=== PATIENT | female | born 1960 | race Caucasian/White ===

== ENCOUNTER 2017-11-20 14:52 | Emergency (ER) | payer OTHER ==
[~2017-11-20] VITALS: Ht 162.6 cm; Wt 63.5 kg
[~2017-11-20 14:52] MED LIST: CIPROFLOXACIN500 M2 PO; PANTOPRAZOLE SO40 M1 PO
--- NOTE | 2017-11-20 15:10 | ED GI/GU/ABDOMINAL COMPLAINT ---
History of Present Illness General Chief Complaint: Abdominal Pain/Flank Pain Stated Complaint: SIB WALK IN FOR ABD PAIN Source: patient, old records Exam Limitations: no limitations Vital Signs & Intake/Output Vital Signs & Intake/Output Vital Signs Date Time Temp Pulse Resp B/P B/P Pulse O2 O2 Flow FiO2 Mean Ox Delivery Rate 11/20 1457 98.3 84 18 144/81 98 Room Air Allergies Coded Allergies: No Known Allergies (05/28/16) Reconcile Medications Alprazolam 0.5 MG TABLET 1 TAB PO PRN ANXIETY/SLEEP (Reported) Escitalopram Oxalate 10 MG TABLET 0.5 TAB PO DAILY MENTAL HEALTH (Reported) Hyoscyamine (Levsin) 0.125 MG TABLET 1 TAB PO Q4 PRN ABDOMINAL PAIN Olopatadine HCl (Patanase) 0.6 % SPRAY.PUMP 2 SPRAY NASB PRN ALLERGIES ( Reported) Olopatadine HCl (Pataday) 0.2 % DROPS 1 GTT OU QPM ALLERGIES (Reported) Triage Note: 57 YO FEMALE TO TRIAGE C/O LLQ PAIN THAT RADAITES TO THE RLQ SINCE 1AM SATRU MORNING. STATES SHE WENT TO THE WALK IN TODAY BUT THEY ADVISED HER TO COME IN FOR EVAL. +DIARRHEA. DENIES N/V. Triage Nurses Notes Reviewed? yes ? N Is pt currently ? No HPI: Patient was awoken at 1:00 in the morning on Tuesday with a sharp stabbing pain in her right and left lower quadrants. Patient had 2 episodes of diarrhea yesterday morning but hasn't had none since. She had normal bowel with this morning. Similar symptoms in the past when she had diverticulitis however she states at that point the pain was only on the left side. Patient denies any nausea or vomiting. There are no fevers or chills. There is no constipation or diarrhea. There is no dysuria. She has not noticed any hematuria. She went to a walk-in center and they noticed that she was very tender in the right lower quadrant she was sent in for evaluation of a CAT scan to rule out appendicitis. Patient states the pain is constant and getting worse when she laughs or moves around or the bumps in the car. The pain is in both the right and left lower quadrant. At its worst the pain is 10 out of 10 and is currently a 6 out of 10. Patient does not want anything for pain at this time. Past History Travel History Traveled to [place] past 21 day No Medical History Any Pertinent Medical History? see below for history Gastrointestinal: diverticulitis, GERD Psychiatric: depression CHIP MIXER/Reproductive: ovarian cysts Surgical History Surgical History: non-contributory Psychosocial History What is your primary language Sinhala Tobacco Use: Never used ETOH Use: occasional use Illicit Drug Use: denies illicit drug use Family History Hx Contributory? No Review of Systems Review of Systems Constitutional: Reports: no symptoms. EENTM: Reports: no symptoms. Respiratory: Reports: no symptoms. Cardiovascular: Reports: no symptoms. GI: Reports: see HPI, abdominal pain. Genitourinary: Reports: no symptoms. Musculoskeletal: Reports: no symptoms. Skin: Reports: no symptoms. Neurological/Psychological: Reports: no symptoms. Hematologic/Endocrine: Reports: no symptoms. Immunologic/Allergic: Reports: no symptoms. All Other Systems: Reviewed and Negative Physical Exam Physical Exam General Appearance: well developed/nourished, alert, awake, anxious, moderate distress Head: atraumatic, normal appearance Eyes: Bilateral: PERRL, EOMI. Ears, Nose, Throat, Mouth: hearing grossly normal Neck: normal inspection, supple, full range of motion Respiratory: normal breath sounds, chest non-tender, no respiratory distress, lungs clear Cardiovascular: regular rate/rhythm, normal peripheral pulses Gastrointestinal: normal bowel sounds, soft, TENDER IN RUQ, RLQ AND LLQ, REBOUND IN RLQ, NO ROVSING'S SIGN Back: normal inspection, normal range of motion, NO CVA TENDERNESS Extremities: normal range of motion Neurologic/Psych: no motor/sensory deficits, awake, alert, oriented x 3, normal gait, normal mood/affect Skin: intact, normal color, warm/dry Core Measures ACS in differential dx? No Sepsis Present: No Sepsis Focused Exam Completed? No Progress Differential Diagnosis: appendicitis, diverticulitis, ischemic bowel, inflamm bowel dis, pancreatitis Plan of Care: Orders Procedure Date/time Status Add-on Test (ER Only) 11/20 1513 Active URINALYSIS 11/20 1509 Complete LIPASE 11/20 1458 Complete COMPREHENSIVE METABOLIC PANEL 11/20 1458 Complete CBC WITHOUT DIFFERENTIAL 11/20 1458 Complete AMYLASE 11/20 1458 Complete Laboratory Tests 11/20/17 1535: Urine Color YEL, Urine Clarity CLEAR, Urine pH 5.5, Ur Specific [place] 1.025, Urine Protein NEG, Urine Ketones NEG, Urine Nitrite NEG, Urine Bilirubin NEG, Urine Urobilinogen 0.2, Ur Leukocyte Esterase NEG, Ur Microscopic SEDIMENT EXAMINED, Urine RBC FEW H, Urine WBC RARE, Ur Epithelial Cells RARE, Urine Mucus MANY H, Urine Hemoglobin TRACE-LYSED, Urine Glucose NEG 11/20/17 1503: CBC w Diff NO MAN DIFF REQ, RBC 4.43, MCV 91.7, MCH 31.6 H, MCHC 34.5, RDW 12.4 , MPV 7.1 L, Gran % 55.2, Lymphocytes % 33.6, Monocytes % 8.2, Eosinophils % 2.5, Basophils % 0.5, Absolute Granulocytes 3.8, Absolute Lymphocytes 2.3, Absolute Monocytes 0.6, Absolute Eosinophils 0.2, Absolute Basophils 0 11/20/17 1458: Anion Gap 11, Estimated GFR > 60, BUN/Creatinine Ratio 12.9, Glucose 114 H, Calcium 10.1, Total Bilirubin 0.5, AST 22, ALT 19, Alkaline Phosphatase 92, Total Protein 6.9, Albumin 4.4, Globulin 2.5, Albumin/Globulin Ratio 1.8, Amylase 68, Lipase 97 Diagnostic Imaging: Viewed by Me: CT Scan. Discussed w/RAD: CT Scan. Radiology Impression: PATIENT: JULES STAHL PRESENT AGE: 57 PATIENT ACCOUNT NO: [id number] : 58 LOCATION: [facility] ORDERING PHYSICIAN: Jay Sorto MD SERVICE DATE: 11/20/17 EXAM TYPE: CAT - CT ABD & PELVIS W IV CONTRAST EXAMINATION: CT ABDOMEN AND PELVIS WITH CONTRAST CLINICAL INFORMATION: Right lower quadrant and left lower quadrant pain. COMPARISON: Abdominal CT 05/28/2016. TECHNIQUE: Multidetector volumetric imaging was performed of the abdomen and pelvis following IV administration of 95 ml optiray 320 intravenous contrast. Sagittal and coronal reformatted images were obtained on the technologist's workstation. FINDINGS: The lung bases are clear. The liver, spleen, adrenal glands, gallbladder, and pancreas are normal. The kidneys exhibit symmetric nephrograms without evidence of hydronephrosis or nephrolithiasis. No focal renal lesions. There is some free fluid surrounding small bowel loops within the lower abdomen which exhibit mucosal hyperenhancement and fluid levels, findings that suggest an underlying infectious or inflammatory enteritis. Sigmoid diverticulosis without evidence of acute diverticulitis. The appendix is normal. No bowel obstruction.There is no free air. No mesenteric or retroperitoneal adenopathy. The pelvic viscera are normal. No pelvic adenopathy. No free fluid within the pelvis. There are no acute osseous abnormalities. There is moderate disc volume loss and there is vacuum phenomenon at L5-S1. No significant soft tissue abnormality. IMPRESSION: There is some free fluid surrounding small bowel loops within the lower abdomen which exhibit mucosal hyperenhancement and fluid levels, findings that suggest an underlying infectious or inflammatory enteritis. Sigmoid diverticulosis without evidence of acute diverticulitis. The appendix is normal. DICTATED BY: Anam Naqvi MD DATE/TIME DICTATED:11/20/171608 PRESS BRAKE OPERATOR:JONAH DATE/TIME TRANSCRIBED:11/20/171608 CONFIDENTIAL, DO NOT COPY WITHOUT APPROPRIATE AUTHORIZATION. <Electronically signed in Other Vendor System> SIGNED BY: Anam Naqvi MD 11/20/17 1620 Initial ED EKG: none Comments: Labs and CAT scan results have been discussed with the patient. I questioned been answered. Patient continues to have tenderness to palpation with slight rebound in the right lower quadrant. Patient still does not want anything for pain at this time. We will discuss with gastroenterology. D/W DR. ARECHIGA, PT AGREEABLE TO GO HOME WITH [facility]. SHE WILL FOLLOW UP EARLY THIS WEEK WITH HER GATROENTEROLOGIST. Departure Departure Disposition: HOME OR SELF CARE Condition: Stable Clinical Impression Primary Impression: Enteritis Referrals: Jackie Lezama MD (PCP/Family) Additional Instructions: FOLLOW UP WITH YOUR MAGNETIC TESTING TECHNICIAN EARLY THIS WEEK RETURN IF SYMPTOMS WORSEN OR FOR ANY CONCERNS Departure Forms: Customer Survey General Discharge Information Prescriptions: Current Visit Scripts Hyoscyamine (Levsin) 1 TAB PO Q4 PRN ABDOMINAL PAIN #20 TAB
[2017-11-20 15:11] LABS: ABSOLUTE BASOPHIL COUNT 0 /CUMM (0.0-0.2); ABSOLUTE EOSINOPHIL COUNT 0.2 /CUMM (0.0-0.7); ABSOLUTE GRANULOCYTE CT 3.8 /CUMM (1.4-6.5); ABSOLUTE LYMPH COUNT 2.3 /CUMM (1.2-3.4); ABSOLUTE MONOCYTE COUNT 0.6 /CUMM (0.10-0.60); BASOPHIL % 0.5 % (0.0-2.0); EOSINOPHIL % 2.5 % (0-5); GRANULOCYTE % 55.2 % (42.2-75.2); HEMATOCRIT 40.6 % (37-47); MEAN CORPUSCULAR HGB 31.6 PG (27.0-31.0); MEAN CORPUSCULAR HGB CONC 34.5 G/DL (33.0-37.0); MEAN CORPUSCULAR VOLUME 91.7 FL (81.0-99.0); MEAN PLATELET VOLUME 7.1 FL (7.4-10.4); PLATELET COUNT 318 /CUMM (130-400); RBC DISTRIBUTION WIDTH 12.4 % (11.5-14.5); RED BLOOD CELL CT 4.43 /CUMM (4.20-5.40)
[2017-11-20] MEDS ORDERED: ESCITALOPRAM OX10 MG PO (15:45)
[2017-11-20] MEDS ORDERED: PATANASE30.5 GM NASB (15:45)
[2017-11-20] MEDS ORDERED: PATADAY2.5 ML OU (15:46)
[2017-11-20] MEDS ORDERED: ALPRAZOLAM0.5 M4 PO (15:46)
--- NOTE | 2017-11-20 16:20 | CT SCAN REPORT ---
EXAMINATION: CT ABDOMEN AND PELVIS WITH CONTRAST CLINICAL INFORMATION: Right lower quadrant and left lower quadrant pain. COMPARISON: Abdominal CT 05/28/2016. TECHNIQUE: Multidetector volumetric imaging was performed of the abdomen and pelvis following IV administration of 95 ml optiray 320 intravenous contrast. Sagittal and coronal reformatted images were obtained on the technologist's workstation. FINDINGS: The lung bases are clear. The liver, spleen, adrenal glands, gallbladder, and pancreas are normal. The kidneys exhibit symmetric nephrograms without evidence of hydronephrosis or nephrolithiasis. No focal renal lesions. There is some free fluid surrounding small bowel loops within the lower abdomen which exhibit mucosal hyperenhancement and fluid levels, findings that suggest an underlying infectious or inflammatory enteritis. Sigmoid diverticulosis without evidence of acute diverticulitis. The appendix is normal. No bowel obstruction.There is no free air. No mesenteric or retroperitoneal adenopathy. The pelvic viscera are normal. No pelvic adenopathy. No free fluid within the pelvis. There are no acute osseous abnormalities. There is moderate disc volume loss and there is vacuum phenomenon at L5-S1. No significant soft tissue abnormality. IMPRESSION: There is some free fluid surrounding small bowel loops within the lower abdomen which exhibit mucosal hyperenhancement and fluid levels, findings that suggest an underlying infectious or inflammatory enteritis. Sigmoid diverticulosis without evidence of acute diverticulitis. The appendix is normal.
[2017-11-20] MEDS ORDERED: LEVSIN0.125 M1 PO (16:59)
[2017-11-20 17:03] VITALS: BP 135/78
== END 2017-11-20 17:12 ==
LOC: ERH 14:52
PROVIDERS: Emergency Medicine
DX: K52.9 Noninfective gastroenteritis and colitis, unspecified (principal)
CPT/HCPCS: 74177; 81001